=== PATIENT | female | born 1975 | race Caucasian/White ===

== ENCOUNTER 2018-09-09 04:39 | Emergency (ER) | payer BC ==
[~2018-09-09] VITALS: Ht 160 cm; Wt 80.2 kg
--- NOTE | 2018-09-09 05:09 | NUR ---
TAMMY SIMONS AT BS TO CAIT PT. AND DISCUSS POC.
[2018-09-09] MEDS ORDERED: LORazepam 2 MG/ML, 1ML ONE (05:29)
[2018-09-09] MEDS ORDERED: ASPIRIN 81 MG TABLET CHEW ONE (05:29)
[2018-09-09] MEDS ORDERED: ASPIRIN 81 MG TABLET CHEW PO ONE (05:30)
[2018-09-09] MEDS ORDERED: SODIUM CHLORIDE FLUSH 10ML SYR IVF ONE (05:30)
[2018-09-09] MEDS ORDERED: LORazepam 2 MG/ML, 1ML IVPush ONE (05:30)
--- NOTE | 2018-09-09 05:45 | NUR ---
EKG DONE AND PRESENTED TO ERMD. ALL MONITORS IN PLACE. CHEST X-RAY BEING COMPLETED.
--- NOTE | 2018-09-09 06:08 | NUR ---
PT. MEDICATED PER MAR. CALL LIGHT IN REACH. FAMILY AT FOR SUPPORT. ALL SAFETY MEASURES OBSERVED.
[2018-09-09 06:12] LABS: BASOPHILS # (AUTO) 0.03 x10^3/uL (0-0.1); BASOPHILS % (AUTO) 0 % (0-1); EOSINOPHILS # (AUTO) 0.13 x10^3/uL (0-0.4); EOSINOPHILS % (AUTO) 2 % (1-7); LYMPHOCYTES # (AUTO) 1.49 x10^3/uL (1-3.4); LYMPHOCYTES % (AUTO) 20 % (22-44); MD NO; MEAN CORPUSCULAR HEMOGLOBIN 30.4 pg (27.0-34.8); MEAN CORPUSCULAR HGB CONC 32.6 g/dL (32.4-35.8); MEAN CORPUSCULAR VOLUME 93.3 fL (80-100); MEAN PLATELET VOLUME 8.9 fL (7.4-10.4); MONOCYTES # (AUTO) 0.43 x10^3/uL (0.2-0.8); MONOCYTES % (AUTO) 6 % (2-9); NEUTROPHILS # (AUTO) 5.38 x10^3/uL (1.8-6.8); NEUTROPHILS % (AUTO) 72 % (42-75); PLATELET COUNT 239 x10^3/uL (130-400); RED BLOOD COUNT 4.47 x10^6/uL (3.82-5.3); RED CELL DISTRIBUTION WIDTH 14.4 % (9.6-15.2)
[2018-09-09 06:23] LABS: ALBUMIN 3.5 g/dL (3.4-5.0); ANION GAP 5 mmol/L (5-15); CALCIUM 8.8 mg/dL (8.5-10.1); CHLORIDE 113 mmol/L (98-107); CREATININE 0.75 mg/dL (0.55-1.02)
[2018-09-09 06:30] LABS: TROPONIN I < 0.015 ng/mL (0.000-0.045)
--- NOTE | 2018-09-09 07:06 | NUR ---
REPORT TO SHERLYN SANDERS.
[2018-09-09 07:13] VITALS: BP 140/78
== END 2018-09-09 07:22 | disposition home or self-care (01) ==
LOC: ED 07:14
DX: F41.1 Generalized anxiety disorder (principal)
CPT/HCPCS: 36415; 71045; 80048; 82040; 83880; 84484; 84703; 85025; 93005; 96374; 99284; J2060